=== PATIENT | female | born 1975 | race Caucasian/White ===

== ENCOUNTER 2019-02-18 12:53 | Observation (INO) ==
[2019-02-18] MEDS ORDERED: SODIUM CHLORIDE 0.9% 1000ML 1,000 ML IV ONE (13:53)
[2019-02-18] MEDS ORDERED: ONDANSETRON INJ 2 MG/ML 2 ML VIAL IV STA (13:53)
[2019-02-18 14:05] LABS: Basophils # (auto) 0.02 K/uL (0-0.2); Basophils % (auto) 0.2 %; Eosinophils # (auto) 0.11 K/uL (0-0.5); Eosinophils % (auto) 0.9 %; Hemoglobin 15.1 g/dL (12.0-16.0); Immature Granulocytes # (auto) 0.01 K/uL (0.00-0.02); Immature Granulocytes % (auto) 0.1 %; Lymphocytes # (auto) 1.28 K/uL (1.2-3.4); Lymphocytes % (auto) 10.2 %; Mean Corpuscular Hgb Conc 34.3 g/dL (32-36); Mean Corpuscular Volume 81.2 fL (80-100); Mean Platelet Volume 8.7 fL (7.4-10.4); Monocytes # (auto) 0.65 K/uL (0.11-0.59); Monocytes % (auto) 5.2 %; Neutrophils # (auto) 10.47 K/uL (1.4-6.5); Neutrophils % (auto) 83.4 %; Platelet Count 266 K/uL (130-400); RDW Coefficient of Variation 14.5 % (11.5-14.5); RDW Standard Deviation 42.8 fL (36.4-46.3); Red Blood Count 5.42 M/uL (4.2-5.4); White Blood Count 12.54 K/uL (4.8-10.8)
[2019-02-18 14:21] LABS: Albumin Level 4.3 gm/dl (3.4-5.0); Calcium 9.4 mg/dl (8.5-10.1); Creatinine Clr Calc Pharmacy 114.7 ml/min; Est GFR (African American) 93.2; Est GFR (Non-African American) 80.5; Potassium 3.7 mmol/L (3.5-5.1)
[2019-02-18 14:24] LABS: Bilirubin,Total 0.4 mg/dl (0.2-1); Globulin 4.5 gm/dl (2.5-4.0); Total Protein 8.8 gm/dl (6.4-8.2)
[2019-02-18] MEDS ORDERED: ACETAMINOPHEN 1,000 MG/100 ML VIAL IV STA (14:44)
[2019-02-18 15:19] LABS: Appearance Urine Clear (Clear); Bilirubin Urine Negative (Negative); Blood Urine Negative (Negative); Color Urine Yellow; Glucose Urine UA Negative (Negative); Ketones Urine 1+ (Negative); Leukocyte Esterase Urine Negative (Negative); Nitrite Urine Negative (Negative); Protein Urine Negative (Negative); Specific Gravity Urine 1.025 (1.000-1.030); Urobilinogen Urine Negative (Negative)
[2019-02-18] MEDS ORDERED: IOVERSOL 100ml IV PRN (15:36)
--- NOTE | 2019-02-18 15:46 | CT Scan Report ---
ABDOMEN AND PELVIS CT WITH IV CONTRAST CT DOSE: 1658.22 mGy.cm HISTORY: Acute left lower quadrant abdominal pain LLQ pain TECHNIQUE: Multiaxial CT images of the abdomen and pelvis were performed following the use of intrave nous contrast. A dose lowering technique was utilized adhering to the principles of ALARA. COMPARISON STUDY: CT abdomen and pelvis 09/14/2014. FINDINGS: Minimal linear subsegmental atelectasis/scarring of the inferior segment lingula and basal left lower lobe. Lung bases otherwise appear to be generally clear. No pneumatosis or pneumoperitoneum identifi ed. The imaged inferior cardiac chambers appear unremarkable. Spleen is mildly enlarged, 13.7 cm and otherwise appears unremarkable. The liver, gallbladder, pancre as and right adrenal gland are unremarkable. Mild thickening of the left adrenal gland. The kidneys, ureters, urinary bladder, uterus and adnexa are within normal limits. Aorta and IVC are unremarkable. There is no adenopathy. There is no small bowel obstruction. Trace free fluid noted about the dependent pelvis. Colonic diver ticulosis without acute diverticulitis. The appendix is dilated and fluid-filled with mucosal hyperem ia measuring up to 11 mm. Moderate periappendiceal inflammation. No evidence of perforation or draina ble fluid collection. Tiny fat filled periumbilical hernia. Breast parenchyma and soft tissues appear to be within normal limits. Bones appear to be intact. Spondylitic spurring with facet arthropathy n oted about the lumbar spine. Mild levoscoliosis of the lumbar spine. IMPRESSION: 1. Findings compatible with acute uncomplicated appendicitis. No evidence of perforation or drainable fluid collection. 2. Colonic diverticulosis without acute diverticulitis. 3. Mild splenomegaly. 4. Tiny fat filled periumbilical hernia. Electronically signed by: Evens Fisher M.D. 02/18/2019 3:44 PM
[2019-02-18] MEDS ORDERED: cefOXitin 1,000 MG/50 ML BAG IV STA ×2 (16:11→18:57)
--- NOTE | 2019-02-18 17:17 | Surgery Consultation ---
Date of Consultation February 18, 2019 Assessment & Plan (1) Appendicitis: Pt seen and examined with Dr. Méndez. Will plan for Laparoscopic Appendectomy, Possible Open Appendectomy. Reviewed risks of surgery with patient and patient's . Patient aware that this may not be source of her pain. She wishes to proceed with Appendectomy. Patient NPO since this AM. OR notified. SCDs. History of Present Illness Reason for Consultation: CT showing acute appendicitis History of Present Illness Ms. Tello is a 43-year-old female with past medical history significant for ovarian cyst, acid reflux, high cholesterol presents for evaluation of abdominal pain. Pt states that she developed left-sided abdominal pain yesterday evening. She reports that the pain continued to get progressively worse overnight and into this AM. She states that she did feel a bit nauseous, but did not vomit. Currently, she states her pain is now in the right lower quadrant, but that it did improve with pain medication. In ED, CT scan showed uncomplicated appendicitis, no perforation or drainable fluid collection. In addition, CT scan showed evidence of tiny fat-filled periumbilical hernia. Patient reports that her last meal was this AM around 8-9AM. Prior surgeries- . Allergies Allergy/AdvReac Type Severity Reaction Status Date / Time No Known Allergies Allergy Unknown Verified 02/18/19 15:02 Home Medications Home Medications Medication Instructions Recorded Confirmed Type bupropion HCl [Wellbutrin XL] 300 mg PO DAILY 02/18/19 02/18/19 History fluticasone propionate [Flonase 2 spray INTRANASAL DAILY 02/18/19 02/18/19 History Allergy Relief] ibuprofen 800 mg PO TID PRN 02/18/19 02/18/19 History omeprazole 20 mg PO DAILY 02/18/19 02/18/19 History simvastatin [Zocor] 20 mg PO QPM 02/18/19 02/18/19 History Patient History Medical History Bronchitis (Resolved) Left ovarian cyst (Acute) Surgical History Previous section (Resolved) Family History Other No pertinent family history Social History marital status: Feels Safe at Home: Yes Smoking Status: Never smoker Physical Exam Vital Signs (Past 24 Hours): Last Vital Signs Temp 36.6 C 02/18/19 13:06 Pulse 64 02/18/19 14:48 Resp 16 02/18/19 14:48 BP 133/89 02/18/19 14:48 Pulse Ox 99 02/18/19 14:48 Constitutional: + morbidly obese Gastrointestinal (Abdomen): Percussion/Palpation: + abdomen tender (right lower quadrant- area of tenderness marked with a mcgrath) and abdomen soft (1) Appendicitis Appendicitis type: unspecified Qualified Code(s): K37 - Unspecified a ppendicitis
--- NOTE | 2019-02-18 17:18 | History & Physical Bridge Note ---
Date of Service February 18, 2019 History & Physical Bridge Note I have examined the patient, reviewed the History & Physical and in the interval since the performance of the History & Physical I have noted the following changes of clinical significance: no changes noted SO at bedside right lower quadrant rebound deep palpation ct scan noted plan lap appy possible open r and c expalined to pt and SO
[2019-02-18] MEDS ORDERED: fentaNYL citrate 100 MCG/2 ML VIAL IV PRN (17:25)
[2019-02-18] MEDS ORDERED: ePHEDrine sulfate 50 MG/ML AMP IV PRN (17:25)
[2019-02-18] MEDS ORDERED: ONDANSETRON INJ 2 MG/ML 2 ML VIAL IV PRN (17:25)
[2019-02-18] MEDS ORDERED: ATROPINE SULFATE 0.1 MG/ML 10ML SYR IV PRN (17:25)
[2019-02-18] MEDS ORDERED: fentaNYL citrate 100 MCG/2 ML VIAL ONE ×4 (17:28→19:45)
[2019-02-18] MEDS ORDERED: PROPOFOL IV EMULSION 10 MG/ML 20 ML VIAL IV ONE ×2 (17:28→19:10)
[2019-02-18] MEDS ORDERED: LIDOCAINE HCL 2% 2 ML VIAL/AMP(20MG/ML) INFIL ONE (17:28)
[2019-02-18] MEDS ORDERED: LIDOCAINE/EPINEPHRINE 1% 20 ML VIAL ONE (17:30)
--- NOTE | 2019-02-18 17:45 | Anesthesiology Consultation ---
Date of Service February 18, 2019 Assessment & Plan (1) Encounter for pre-operative examination: Chart Review Chart Review: Acceptable Risk for Surgery Consults Requested none ASA [id number] Proposed Anesthesia Anesthesia Type: General Risk / Benefits Reviewed With: PT / POA / Parent / Guardian, Accepts Plan and Informed Consent Obtained NPO Date Last Intake of Fluids: 02/18/19 Time Last Intake of Fluids: 09:00 Date Last Intake of Solids: 02/18/19 Time Last Intake of Solids: 09:00 History Surgery Operation Date: 02/18/19 18:00 Proposed Procedures p Laparoscopic Appendectomy - Hans Méndez MD Operation Date: 02/18/19 18:15 Proposed Procedures p Laparoscopic Appendectomy Laura Méndez MD Height/Weight Height: 5 ft 7 in Weight: 130 kg Allergies Allergy/AdvReac Type Severity Reaction Status Date / Time No Known Allergies Allergy Unknown Verified 02/18/19 15:02 Medications Home Medications Medication Instructions Recorded Confirmed Last Taken bupropion HCl [Wellbutrin XL] 300 mg PO DAILY 02/18/19 02/18/19 Unknown fluticasone propionate [Flonase 2 spray INTRANASAL DAILY 02/18/19 02/18/19 Unknown Allergy Relief] ibuprofen 800 mg PO TID PRN 02/18/19 02/18/19 02/11/19 09:00 omeprazole 20 mg PO DAILY 02/18/19 02/18/19 Unknown simvastatin [Zocor] 20 mg PO QPM 02/18/19 02/18/19 Unknown Active Medications Generic Name Dose Route Start Last Admin Trade Name Freq PRN Reason Stop Dose Admin Ioversol 89 ml 02/18/19 15:36 02/18/19 15:36 Optiray 320 100ml IV 02/22/19 15:35 89 ml ONCE PRN Administration Interaction Checking Past Medical History Medical History Bronchitis (Resolved) Left ovarian cyst (Acute) Past Family History Family History Other No pertinent family history Past Surgical History Surgical History Previous section (Resolved) Past Anesthesia History No Hx of Anesthesia Complications and No Family Hx of Anesthesia Complications History of PONV No Motion Sickness Screening History of Motion Sickness: No Social History Smoking Status: Never smoker Exercise / Class Metabolic Activity II 4-5 Yardwork/Stairs/Walk up hill Physical Exam Vital Signs Last Vital Signs Temp 97.9 F 02/18/19 13:06 Pulse 63 02/18/19 17:25 Resp 20 02/18/19 17:25 BP 133/89 02/18/19 17:25 Pulse Ox 100 02/18/19 17:25 ENMT Mouth: no dentition abnormality Thyromental Distance: > or= 3.5 Finger Breadths Mallampati Class: II Neck normal visual inspection Respiratory normal respiratory effort Auscultation: lungs clear to auscultation bilaterally Cardiovascular Rate/Rhythm: regular rate and regular rhythm Testing Laboratory Results 02/18/19 13:45 02/18/19 13:45 Urine Color Yellow 02/18/19 14:52 Urine Appearance Clear (Clear) 02/18/19 14:52 Urine pH 5.0 (4.5-7.5) 02/18/19 14:52 Ur Specific [place] 1.025 (1.000-1.030) 02/18/19 14:52 Urine Protein Negative (Negative) 02/18/19 14:52 Urine Glucose (UA) Negative (Negative) 02/18/19 14:52 Urine Ketones 1+ (Negative) H 02/18/19 14:52 Urine Nitrite Negative (Negative) 02/18/19 14:52 Ur Leukocyte Esterase Negative (Negative) 02/18/19 14:52 02/18/19 16:46 POC Ur Test Pending
[2019-02-18] MEDS ORDERED: SUCCINYLCHOLINE CHLORIDE 20 MG/ML 10 ML VIAL ONE (17:47)
[2019-02-18 17:48] LABS: Pregnancy Test, Urine Negative (Negative)
--- NOTE | 2019-02-18 17:55 | Emergency Department Note ---
Entered by Sridevi Ortega acting as a scribe for Bridger Liao MD History of Present Illness General Chief complaint: Abdominal Pain Stated complaint: SEVERE PAIN IN ABDOMEN ON LEFT Time Seen by Provider: 02/18/19 13:51 Source: patient History of Present Illness Onset (ago): day(s) (2300 yesterday) Location: abdomen (LLQ) Severity: severe Pain Consistency: + other (worsening) Maximum Pain Intensity: 7 Current Pain Intensity: 5 Quality: + other (LLQ abdominal pain) Associated symptoms: + other (Positive nausea. Negative ); no fever/chills Treatments prior to arrival: other (advil and tramadol) The patient is a 43 year old female who presents to the Emergency Room with complaints of LLQ abdominal pain beginning at 2300 last night. She reports her pain was severe in onset and it worsened at 0200. She states she took advil and tramadol sparmaker but they have not relieved her pain. The patient currently rates her pain as a 5/10 in severity as she notes it has gotten better. She has a history of ovarian cysts and she is concerned she has another one. Pt has nausea but denies any diarrhea, blood in her stool, fevers, chills. Her last BM was this morning. Pt has a history of reflux and regularly takes omeprazole. Home Medications Home Medications Medication Instructions Recorded Confirmed Type bupropion HCl [Wellbutrin XL] 300 mg PO DAILY 02/18/19 02/18/19 History fluticasone propionate [Flonase 2 spray INTRANASAL DAILY 02/18/19 02/18/19 History Allergy Relief] ibuprofen 800 mg PO TID PRN 02/18/19 02/18/19 History omeprazole 20 mg PO DAILY 02/18/19 02/18/19 History simvastatin [Zocor] 20 mg PO QPM 02/18/19 02/18/19 History Allergies Allergy/AdvReac Type Severity Reaction Status Date / Time No Known Allergies Allergy Unknown Verified 02/18/19 15:02 Past Med/Surg History Medical History Bronchitis (Resolved) Left ovarian cyst (Acute) Surgical History Previous section (Resolved) Family History Other No pertinent family history Social History Preferred Language: Bengali Communication Ability: Effective [employer] Supervisor Required: No Beliefs That Will Affect Care: None marital status: Current Living Situation: Spouse Other Information That Helps Us Care for You: No Feels Safe at Home: Yes Safety Concerns: Feels Safe At This Time Smoking Status: Never smoker Hx Alcohol Use: No Hx Substance Use: No Review of Systems See HPI for pertinent positives & negatives. and A total of 10 systems reviewed and were otherwise negative Physical Exam Vital Signs Vital Signs - 24 hr 02/18/19 13:06 02/18/19 14:48 02/18/19 17:25 Temperature 36.6 C Temperature Source Oral Sepsis Recent Fever Within 48 Hours No Sepsis New/Unexplained Change in Mental Status No Sepsis Action Taken by Nursing No Action Required Pulse Rate 80 Pulse Rate [Finger] 64 63 Pulse Rate from SpO2 Sensor Pulse Rhythm [Finger] Regular Pulse Strength [Finger] Normal Respiratory Rate 20 16 20 Respiratory Effort / Characteristics Non-Labored Spontaneous Respiratory Depth Normal Respiratory Pattern Regular Blood Pressure 131/79 Blood Pressure [Right Arm] 133/89 133/89 Blood Pressure Mean 96 Blood Pressure Mean [Right Arm] 103 103 Blood Pressure Position [Right Arm] Lying Pulse Oximetry 100 99 100 Oxygen Delivery Method Room Air Room Air Room Air Oxygen Flow Rate 02/18/19 19:24 02/18/19 19:25 02/18/19 19:26 Temperature 36.8 C Temperature Source Temporal Artery Scan Sepsis Recent Fever Within 48 Hours Sepsis New/Unexplained Change in Mental Status Sepsis Action Taken by Nursing Pulse Rate 100 H 98 H Pulse Rate [Finger] 100 H Pulse Rate from SpO2 Sensor 99 H 99 H Pulse Rhythm [Finger] Regular Pulse Strength [Finger] Respiratory Rate 29 H 18 16 Respiratory Effort / Characteristics Non-Labored Spontaneous Respiratory Depth Normal Respiratory Pattern Regular Blood Pressure 129/81 Blood Pressure [Right Arm] 129/81 Blood Pressure Mean 97 Blood Pressure Mean [Right Arm] 97 Blood Pressure Position [Right Arm] Lying Pulse Oximetry 100 100 Oxygen Delivery Method Oxymask Oxygen Flow Rate 10 02/18/19 19:30 02/18/19 19:31 02/18/19 19:35 Temperature Temperature Source Sepsis Recent Fever Within 48 Hours Sepsis New/Unexplained Change in Mental Status Sepsis Action Taken by Nursing Pulse Rate 101 H 95 H 90 Pulse Rate [Finger] Pulse Rate from SpO2 Sensor 101 H 95 H 90 Pulse Rhythm [Finger] Pulse Strength [Finger] Respiratory Rate 17 15 14 Respiratory Effort / Characteristics Respiratory Depth Respiratory Pattern Blood Pressure 130/82 126/91 Blood Pressure [Right Arm] Blood Pressure Mean 98 102 Blood Pressure Mean [Right Arm] Blood Pressure Position [Right Arm] Pulse Oximetry 97 97 100 Oxygen Delivery Method Oxygen Flow Rate 02/18/19 19:36 02/18/19 19:40 02/18/19 19:41 Temperature Temperature Source Sepsis Recent Fever Within 48 Hours Sepsis New/Unexplained Change in Mental Status Sepsis Action Taken by Nursing Pulse Rate 88 87 87 Pulse Rate [Finger] Pulse Rate from SpO2 Sensor 88 86 86 Pulse Rhythm [Finger] Pulse Strength [Finger] Respiratory Rate 11 L 4 L 9 L Respiratory Effort / Characteristics Respiratory Depth Respiratory Pattern Blood Pressure 133/91 Blood Pressure [Right Arm] Blood Pressure Mean 105 Blood Pressure Mean [Right Arm] Blood Pressure Position [Right Arm] Pulse Oximetry 100 100 100 Oxygen Delivery Method Oxygen Flow Rate 02/18/19 19:45 02/18/19 19:46 02/18/19 19:50 Temperature Temperature Source Sepsis Recent Fever Within 48 Hours Sepsis New/Unexplained Change in Mental Status Sepsis Action Taken by Nursing Pulse Rate 84 85 89 Pulse Rate [Finger] Pulse Rate from SpO2 Sensor 86 87 91 H Pulse Rhythm [Finger] Pulse Strength [Finger] Respiratory Rate 12 18 15 Respiratory Effort / Characteristics Respiratory Depth Respiratory Pattern Blood Pressure 125/81 130/92 Blood Pressure [Right Arm] Blood Pressure Mean 95 104 Blood Pressure Mean [Right Arm] Blood Pressure Position [Right Arm] Pulse Oximetry 100 100 100 Oxygen Delivery Method Oxygen Flow Rate 02/18/19 19:51 02/18/19 19:55 02/18/19 19:56 Temperature Temperature Source Sepsis Recent Fever Within 48 Hours Sepsis New/Unexplained Change in Mental Status Sepsis Action Taken by Nursing Pulse Rate 79 85 88 Pulse Rate [Finger] Pulse Rate from SpO2 Sensor 85 85 86 Pulse Rhythm [Finger] Pulse Strength [Finger] Respiratory Rate 13 13 10 L Respiratory Effort / Characteristics Respiratory Depth Respiratory Pattern Blood Pressure 142/90 H Blood Pressure [Right Arm] Blood Pressure Mean 107 Blood Pressure Mean [Right Arm] Blood Pressure Position [Right Arm] Pulse Oximetry 100 98 99 Oxygen Delivery Method Oxygen Flow Rate 02/18/19 20:00 02/18/19 20:01 02/18/19 20:05 Temperature Temperature Source Sepsis Recent Fever Within 48 Hours Sepsis New/Unexplained Change in Mental Status Sepsis Action Taken by Nursing Pulse Rate 85 85 88 Pulse Rate [Finger] Pulse Rate from SpO2 Sensor 84 85 88 Pulse Rhythm [Finger] Pulse Strength [Finger] Respiratory Rate 13 16 13 Respiratory Effort / Characteristics Respiratory Depth Respiratory Pattern Blood Pressure 146/75 H Blood Pressure [Right Arm] Blood Pressure Mean 98 Blood Pressure Mean [Right Arm] Blood Pressure Position [Right Arm] Pulse Oximetry 100 100 100 Oxygen Delivery Method Oxygen Flow Rate 02/18/19 20:06 02/18/19 20:10 02/18/19 20:11 Temperature Temperature Source Sepsis Recent Fever Within 48 Hours Sepsis New/Unexplained Change in Mental Status Sepsis Action Taken by Nursing Pulse Rate 85 96 H 85 Pulse Rate [Finger] Pulse Rate from SpO2 Sensor 89 92 H 86 Pulse Rhythm [Finger] Pulse Strength [Finger] Respiratory Rate 18 17 15 Respiratory Effort / Characteristics Respiratory Depth Respiratory Pattern Blood Pressure 152/81 H 127/86 Blood Pressure [Right Arm] Blood Pressure Mean 104 99 Blood Pressure Mean [Right Arm] Blood Pressure Position [Right Arm] Pulse Oximetry 100 100 100 Oxygen Delivery Method Oxygen Flow Rate 02/18/19 20:15 02/18/19 20:16 02/18/19 20:20 Temperature Temperature Source Sepsis Recent Fever Within 48 Hours Sepsis New/Unexplained Change in Mental Status Sepsis Action Taken by Nursing Pulse Rate 90 87 85 Pulse Rate [Finger] Pulse Rate from SpO2 Sensor 87 88 84 Pulse Rhythm [Finger] Pulse Strength [Finger] Respiratory Rate 17 17 11 L Respiratory Effort / Characteristics Respiratory Depth Respiratory Pattern Blood Pressure 126/91 Blood Pressure [Right Arm] Blood Pressure Mean 102 Blood Pressure Mean [Right Arm] Blood Pressure Position [Right Arm] Pulse Oximetry 100 100 100 Oxygen Delivery Method Oxygen Flow Rate 02/18/19 20:21 02/18/19 20:22 02/18/19 20:25 Temperature Temperature Source Sepsis Recent Fever Within 48 Hours Sepsis New/Unexplained Change in Mental Status Sepsis Action Taken by Nursing Pulse Rate 77 82 71 Pulse Rate [Finger] Pulse Rate from SpO2 Sensor 79 83 76 Pulse Rhythm [Finger] Pulse Strength [Finger] Respiratory Rate 12 11 L 18 Respiratory Effort / Characteristics Respiratory Depth Respiratory Pattern Blood Pressure 145/97 H Blood Pressure [Right Arm] Blood Pressure Mean 113 Blood Pressure Mean [Right Arm] Blood Pressure Position [Right Arm] Pulse Oximetry 100 100 100 Oxygen Delivery Method Oxygen Flow Rate 02/18/19 20:26 02/18/19 20:27 02/18/19 20:30 Temperature 36.7 C Temperature Source Temporal Artery Scan Sepsis Recent Fever Within 48 Hours Sepsis New/Unexplained Change in Mental Status Sepsis Action Taken by Nursing Pulse Rate 77 73 Pulse Rate [Finger] 85 Pulse Rate from SpO2 Sensor 77 79 Pulse Rhythm [Finger] Pulse Strength [Finger] Respiratory Rate 16 16 17 Respiratory Effort / Characteristics Non-Labored Spontaneous Respiratory Depth Normal Respiratory Pattern Regular Blood Pressure 131/82 Blood Pressure [Right Arm] 143/78 H Blood Pressure Mean 98 Blood Pressure Mean [Right Arm] 99 Blood Pressure Position [Right Arm] Lying Pulse Oximetry 100 100 100 Oxygen Delivery Method Nasal Cannula Oxygen Flow Rate 2 02/18/19 20:31 02/18/19 20:35 02/18/19 20:36 Temperature Temperature Source Sepsis Recent Fever Within 48 Hours Sepsis New/Unexplained Change in Mental Status Sepsis Action Taken by Nursing Pulse Rate 70 64 75 Pulse Rate [Finger] Pulse Rate from SpO2 Sensor 74 69 84 Pulse Rhythm [Finger] Pulse Strength [Finger] Respiratory Rate 14 15 8 L Respiratory Effort / Characteristics Respiratory Depth Respiratory Pattern Blood Pressure 143/78 H 122/85 Blood Pressure [Right Arm] Blood Pressure Mean 99 97 Blood Pressure Mean [Right Arm] Blood Pressure Position [Right Arm] Pulse Oximetry 100 100 100 Oxygen Delivery Method Oxygen Flow Rate 02/18/19 20:40 02/18/19 20:41 02/18/19 20:45 Temperature Temperature Source Sepsis Recent Fever Within 48 Hours Sepsis New/Unexplained Change in Mental Status Sepsis Action Taken by Nursing Pulse Rate 67 76 65 Pulse Rate [Finger] Pulse Rate from SpO2 Sensor 69 76 64 Pulse Rhythm [Finger] Pulse Strength [Finger] Respiratory Rate 13 10 L 7 L Respiratory Effort / Characteristics Respiratory Depth Respiratory Pattern Blood Pressure 131/87 130/88 Blood Pressure [Right Arm] Blood Pressure Mean 101 102 Blood Pressure Mean [Right Arm] Blood Pressure Position [Right Arm] Pulse Oximetry 100 100 100 Oxygen Delivery Method Oxygen Flow Rate 02/18/19 20:46 02/18/19 20:50 02/18/19 21:18 Temperature 37.3 C Temperature Source Oral Sepsis Recent Fever Within 48 Hours Sepsis New/Unexplained Change in Mental Status Sepsis Action Taken by Nursing Pulse Rate 63 85 Pulse Rate [Finger] 83 Pulse Rate from SpO2 Sensor 70 84 Pulse Rhythm [Finger] Regular Pulse Strength [Finger] Normal Respiratory Rate 10 L 18 18 Respiratory Effort / Characteristics Non-Labored Spontaneous Normal for Patient Respiratory Depth Normal Respiratory Pattern Regular Blood Pressure 142/88 H Blood Pressure [Right Arm] 127/76 Blood Pressure Mean 106 Blood Pressure Mean [Right Arm] 93 Blood Pressure Position [Right Arm] Lying Pulse Oximetry 100 100 100 Oxygen Delivery Method Nasal Cannula Oxygen Flow Rate 2 02/18/19 21:55 02/18/19 21:57 Temperature 36.6 C 36.6 C Temperature Source Oral Oral Sepsis Recent Fever Within 48 Hours Sepsis New/Unexplained Change in Mental Status Sepsis Action Taken by Nursing Pulse Rate Pulse Rate [Finger] 91 H 89 Pulse Rate from SpO2 Sensor Pulse Rhythm [Finger] Regular Pulse Strength [Finger] Normal Respiratory Rate 18 18 Respiratory Effort / Characteristics Non-Labored Spontaneous Normal for Patient Respiratory Depth Normal Normal Respiratory Pattern Regular Blood Pressure Blood Pressure [Right Arm] 128/79 115/80 Blood Pressure Mean Blood Pressure Mean [Right Arm] 95 91 Blood Pressure Position [Right Arm] Lying Lying Pulse Oximetry 99 94 Oxygen Delivery Method Nasal Cannula Nasal Cannula Oxygen Flow Rate 2 2 GENERAL: Awake, alert, uncomfortable-appearing, in no distress HENT: Normocephalic, atraumatic. Oropharynx with dry mucous membranes and otherwise unremarkable. EYES: Normal conjunctiva. Sclera non-icteric. NECK: Supple. No nuchal rigidity. FROM. No JVD. RESPIRATORY: Clear to auscultation. CARDIAC: Regular rate, normal rhythm. Extremities warm and well perfused. Pulses equal. ABDOMEN: Soft, non-distended. Mild right lower quadrant tenderness to palpation. No rebound or guarding. No masses. No peritoneal signs RECTAL: Deferred. MUSCULOSKELETAL: Chest examination reveals no tenderness. The back is symmetrical on inspection without obvious abnormality. There is no CVA tenderness to palpation. No joint edema. LOWER EXTREMITIES: Calves are equal size bilaterally and non-tender. No edema. No discoloration. NEURO: Normal sensorium. No sensory or motor deficits noted. SKIN: No rash or jaundice noted. Course 1435: Past medical records reviewed. The patient was evaluated in room D2, and a complete history and physical examination were performed. 1613: I checked on the patient at this time and discussed their findings. 1614: I reviewed the patient's case with Dr. Méndez, General Surgery. He asked to page the general surgery PA. 1626: I reviewed the patient's case with Piedad Handley General Surgery [facility]. She will come see the patient. Consultations Consultation #1: I reviewed the patient's case with Dr. Méndez, General Surgery. He asked to page the general surgery PA. Time: 16:14 Consultation #2: I reviewed the patient's case with Piedad Handley General Surgery [facility]. She will come see the patient. Time: 16:26 Administered Medications Ioversol (Optiray 320 100ml) 89 ml IV ONCE PRN PRN Reason: Interaction Checking Stop: 02/22/19 15:35 Last Admin: 02/18/19 15:36 Dose: 89 ml Documented by: [id number] Ondansetron HCl (Zofran) 4 mg IV Q4H PRN PRN Reason: Nausea And Vomiting Stop: 03/20/19 17:55 Last Admin: 02/18/19 21:32 Dose: 4 mg Documented by: [id number] Discontinued Medications Fentanyl Citrate (Fentanyl Citrate) Confirm Administered Dose 100 mcg .ROUTE .STK-MED ONE Stop: 02/18/19 19:32 Last Increment: 02/18/19 19:40 Dose: 50 mcg Documented by: [id number] Increment: 02/18/19 19:35 Dose: 50 mcg Documented by: [id number] Fentanyl Citrate (Fentanyl Citrate) Confirm Administered Dose 100 mcg .ROUTE .STK-MED ONE Stop: 02/18/19 19:46 Last Increment: 02/18/19 19:50 Dose: 50 mcg Documented by: [id number] Increment: 02/18/19 19:45 Dose: 50 mcg Documented by: [id number] Hydromorphone HCl (Dilaudid) Confirm Administered Dose 1 mg .ROUTE .STK-MED ONE Stop: 02/18/19 20:09 Last Increment: 02/18/19 20:13 Dose: 0.5 mg Documented by: [id number] Increment: 02/18/19 20:08 Dose: 0.5 mg Documented by: [id number] Hydromorphone HCl (Dilaudid) Confirm Administered Dose 1 mg .ROUTE .STK-MED ONE Stop: 02/18/19 20:23 Last Increment: 02/18/19 20:28 Dose: 0.5 mg Documented by: [id number] Increment: 02/18/19 20:23 Dose: 0.5 mg Documented by: [id number] Sodium Chloride (Nss 1000ml) 1,000 mls @ 999 mls/hr IV .Q1H1M ONE Stop: 02/18/19 14:53 Last Infusion: 02/18/19 15:41 Dose: 0 mls/hr Documented by: [id number] Admin: 02/18/19 14:08 Dose: 999 mls/hr Documented by: [id number] Acetaminophen (Ofirmev) 1,000 mg in 100 mls @ 400 mls/hr IV NOW STA Stop: 02/18/19 14:58 Last Infusion: 02/18/19 15:41 Dose: 0 mls/hr Documented by: [id number] Admin: 02/18/19 14:57 Dose: 400 mls/hr Documented by: [id number] Cefoxitin Sodium (Mefoxin) 1,000 mg in 50 mls @ 100 mls/hr IV NOW STA Stop: 02/18/19 16:40 Last Infusion: 02/18/19 16:59 Dose: 0 mls/hr Documented by: [id number] Admin: 02/18/19 16:33 Dose: 100 mls/hr Documented by: [id number] Cefoxitin Sodium (Mefoxin) 1,000 mg in 50 mls @ 100 mls/hr IV ONCE STA Stop: 02/18/19 19:26 Last Infusion: 02/18/19 22:04 Dose: 0 mls/hr Documented by: [id number] Admin: 02/18/19 18:12 Dose: 100 mls/hr Documented by: [id number] Lidocaine/Epinephrine (Xylocaine/Epinephrine 1%) Confirm Administered Dose 20 ml .ROUTE .STK-MED ONE Stop: 02/18/19 17:31 Last Admin: 02/18/19 19:11 Dose: 10 ml Documented by: [id number] Ondansetron HCl (Zofran) 4 mg IV NOW STA Stop: 02/18/19 13:54 Last Admin: 02/18/19 14:08 Dose: 4 mg Documented by: [id number] Medical Decision Making Differential Diagnosis Differential diagnosis: Etiologies such as appendicitis, diverticulitis, PUD, biliary pathology, UTI, pancreatitis, obstruction, mesenteric ischemia, aortic pathology, infections, inflammatory bowel disease, renal colic, as well as others were entertained. Medical Records Attestation: I reviewed the patient's medical records. Home Medications Current Medication List: was personally reviewed by me Laboratory Data Attestation: I reviewed the patient's lab results. Result diagrams: 02/18/19 13:45 02/18/19 13:45 Lab Results 02/18/19 02/18/19 02/18/19 Range/Units 13:45 13:45 14:52 WBC 12.54 H (4.8-10.8) K/uL RBC 5.42 H (4.2-5.4) M/uL Hgb 15.1 (12.0-16.0) g/dL Hct 44.0 (37-47) % MCV 81.2 (80-100) fL MCH 27.9 (25-34) pg MCHC 34.3 (32-36) g/dL RDW Std Deviation 42.8 (36.4-46.3) fL RDW Coeff of Malini 14.5 (11.5-14.5) % Plt Count 266 (130-400) K/uL MPV 8.7 (7.4-10.4) fL Immature Gran % (Auto) 0.1 % Neut % (Auto) 83.4 % Lymph % (Auto) 10.2 % [place] % (Auto) 5.2 % Eos % (Auto) 0.9 % Baso % (Auto) 0.2 % Immature Gran # (Auto) 0.01 (0.00-0.02) K/uL Neut # (Auto) 10.47 H (1.4-6.5) K/uL Lymph # (Auto) 1.28 (1.2-3.4) K/uL [place] # (Auto) 0.65 H (0.11-0.59) K/uL Eos # (Auto) 0.11 (0-0.5) K/uL Baso # (Auto) 0.02 (0-0.2) K/uL Sodium 139 (136-145) mmol/L Potassium 3.7 (3.5-5.1) mmol/L Chloride 106 (98-107) mmol/L Carbon Dioxide 29 (21-32) mmol/L Anion Gap 4.0 (3-11) BUN 18 (7-18) mg/dl Creatinine 0.87 (0.6-1.2) mg/dl Est Cr Clr Drug Dosing 114.7 ml/min Est GFR ( Amer) 93.2 Est GFR (Non-Af Amer) 80.5 BUN/Creatinine Ratio 21.0 H (10-20) Glucose 104 H (70-99) mg/dl Calcium 9.4 (8.5-10.1) mg/dl Total Bilirubin 0.4 (0.2-1) mg/dl AST 9 L (15-37) U/L ALT 21 (12-78) U/L Alkaline Phosphatase 91 (45-117) U/L Total Protein 8.8 H (6.4-8.2) gm/dl Albumin 4.3 (3.4-5.0) gm/dl Globulin 4.5 H (2.5-4.0) gm/dl Albumin/Globulin Ratio 1.0 (0.9-2) Lipase 106 (73-393) U/L Urine Color Yellow Urine Appearance Clear (Clear) Urine pH 5.0 (4.5-7.5) Ur Specific [place] 1.025 (1.000-1.030) Urine Protein Negative (Negative) Urine Glucose (UA) Negative (Negative) Urine Ketones 1+ H (Negative) Urine Blood Negative (Negative) Urine Nitrite Negative (Negative) Urine Bilirubin Negative (Negative) Urine Urobilinogen Negative (Negative) Ur Leukocyte Esterase Negative (Negative) Urine Test (Negative) 02/18/19 Range/Units 17:46 WBC (4.8-10.8) K/uL RBC (4.2-5.4) M/uL Hgb (12.0-16.0) g/dL Hct (37-47) % MCV (80-100) fL MCH (25-34) pg MCHC (32-36) g/dL RDW Std Deviation (36.4-46.3) fL RDW Coeff of Malini (11.5-14.5) % Plt Count (130-400) K/uL MPV (7.4-10.4) fL Immature Gran % (Auto) % Neut % (Auto) % Lymph % (Auto) % [place] % (Auto) % Eos % (Auto) % Baso % (Auto) % Immature Gran # (Auto) (0.00-0.02) K/uL Neut # (Auto) (1.4-6.5) K/uL Lymph # (Auto) (1.2-3.4) K/uL [place] # (Auto) (0.11-0.59) K/uL Eos # (Auto) (0-0.5) K/uL Baso # (Auto) (0-0.2) K/uL Sodium (136-145) mmol/L Potassium (3.5-5.1) mmol/L Chloride (98-107) mmol/L Carbon Dioxide (21-32) mmol/L Anion Gap (3-11) BUN (7-18) mg/dl Creatinine (0.6-1.2) mg/dl Est Cr Clr Drug Dosing ml/min Est GFR ( Amer) Est GFR (Non-Af Amer) BUN/Creatinine Ratio (10-20) Glucose (70-99) mg/dl Calcium (8.5-10.1) mg/dl Total Bilirubin (0.2-1) mg/dl AST (15-37) U/L ALT (12-78) U/L Alkaline Phosphatase (45-117) U/L Total Protein (6.4-8.2) gm/dl Albumin (3.4-5.0) gm/dl Globulin (2.5-4.0) gm/dl Albumin/Globulin Ratio (0.9-2) Lipase (73-393) U/L Urine Color Urine Appearance (Clear) Urine pH (4.5-7.5) Ur Specific [place] (1.000-1.030) Urine Protein (Negative) Urine Glucose (UA) (Negative) Urine Ketones (Negative) Urine Blood (Negative) Urine Nitrite (Negative) Urine Bilirubin (Negative) Urine Urobilinogen (Negative) Ur Leukocyte Esterase (Negative) Urine Test Negative (Negative) Imaging Data Radiologist's Impression: Radiology results as stated below per my review and the radiologist's interpretation: ABDOMEN AND PELVIS CT WITH IV CONTRAST CT DOSE: 1658.22 mGy.cm HISTORY: Acute left lower quadrant abdominal pain LLQ pain TECHNIQUE: Multiaxial CT images of the abdomen and pelvis were performed following the use of intravenous contrast. A dose lowering technique was utilized adhering to the principles of ALARA. COMPARISON STUDY: CT abdomen and pelvis 09/14/2014. FINDINGS: Minimal linear subsegmental atelectasis/scarring of the inferior segment lingula and basal left lower lobe. Lung bases otherwise appear to be generally clear. No pneumatosis or pneumoperitoneum identified. The imaged inferior cardiac chambers appear unremarkable. Spleen is mildly enlarged, 13.7 cm and otherwise appears unremarkable. The live r, gallbladder, pancreas and right adrenal gland are unremarkable. Mild thickening of the left adrenal gland. The kidneys, ureters, urinary bladder, uterus and adnexa are within normal limits. Aorta and IVC are unremarkable. There is no adenopathy. There is no small bowel obstruction. Trace free fluid noted about the dependent pelvis. Colonic diverticulosis without acute diverticulitis. The appendix is dilated and fluid-filled with mucosal hyperemia measuring up to 11 mm. Moderate periappendiceal inflammation. No evidence of perforation or drainable fluid collection. Tiny fat filled periumbilical hernia. Breast parenchyma and soft tissues appear to be within normal limits. Bones appear to be intact. Spondylitic spurring with facet arthropathy noted about the lumbar spine. Mild levoscoliosis of the lumbar spine. IMPRESSION: 1. Findings compatible with acute uncomplicated appendicitis. No evidence of perforation or drainable fluid collection. 2. Colonic diverticulosis without acute diverticulitis. 3. Mild splenomegaly. 4. Tiny fat filled periumbilical hernia. Electronically signed by: Evens Fisher M.D. 02/18/2019 3:44 PM Blood Pressure Blood Pressure Findings: Normal blood pressure Blood Pressure Disposition: did not require urgent referral MDM Narrative The patient is a pleasant 43-year-old woman who presents emergency department with complaint of lower abdominal pain that began last night but then developed associated nausea and vomiting today per hpi. The patient reports feeling feverish last night. On arrival patient is uncomfortable but no acute distress, afebrile stable vital signs. BMI is 44.9. On exam patient has mild right lower quadrant tenderness without peritoneal signs. WBC 12.5. Chemistry without acidosis. LFTs unremarkable. UA negative for infection. CT abdomen pelvis demonstrates dilated and fluid-filled appendix with mucosal hyperemia and measuring up to 11 mm. Moderate periappendiceal inflammation. Findings are consistent for acute uncomplicated appendicitis. Patient was ordered for cefoxitin. Patient was updated. Case was discussed with Dr. Méndez and Piedad Rajput, general surgery PA-C, who will evaluate the patient for admission. Impression & Plan Appendicitis Discharge Plan Visit Data Chief Complaint: Abdominal Pain Stated Complaint: SEVERE PAIN IN ABDOMEN ON LEFT ED Provider: Bridger Liao Discharge Problem: Appendicitis Patient Disposition: Being Evaluated by Surgeon Discharge Instructions Interventions: ED Discharge Assessment Last Done: 02/18/19 17:40 Discharge Problem: Appendicitis Qualifiers: Appendicitis type: unspecified Qualified Code(s): K37 - Unspecified appendicitis The scribe's documentation has been prepared under my direction and personally reviewed by me in its entirety. I confirm that the note above accurately reflects all work, treatment, procedures, and medical decision making performed by me.
[2019-02-18] MEDS ORDERED: MoRPHine SULFATE 2 MG/ML CARP IV PRN ×2 (17:56)
[2019-02-18] MEDS ORDERED: MoRPHine SULFATE 4 MG/ML 1 ML CARP\\VIAL IV PRN (17:56)
[2019-02-18] MEDS ORDERED: OXYCODONE/ACETAMINOPHEN 5mg/325mg TAB PO PRN ×2 (17:56)
[2019-02-18] MEDS ORDERED: ONDANSETRON INJ 2 MG/ML 2 ML VIAL ONE (18:25)
[2019-02-18] MEDS ORDERED: ROCURONIUM BROMIDE 10 MG/ML 5 ML VIAL ONE (19:10)
--- NOTE | 2019-02-18 19:11 | Post Operative Brief Note ---
Immediate Post Op Note v1 Date of Surgery February 18, 2019 Pre & Post Diagnosis Operation Date: 02/18/19 18:00 <No data on this case meets the specified criteria> Operation Date: 02/18/19 18:15 Pre-Op Diagnosis: SEVERE PAIN IN ABDOMEN ON LEFT Post-Op Diagnosis: SEVERE PAIN IN ABDOMEN ON LEFT Procedure Operation Date: 02/18/19 18:00 <No data on this case meets the specified criteria> Operation Date: 02/18/19 18:15 Actual Procedures p Laparoscopic Appendectomy(Not Applicable) - Hans Méndez MD Surgeon Hans Méndez MD Document Review Specialist 0 Estimated Blood Loss 15 Findings Consistent with Post-Op Diagnosis
--- NOTE | 2019-02-18 19:25 | Operative Report ---
Post Operative Report Pre & Post Diagnosis Operation Date: 02/18/19 18:00 <No data on this case meets the specified criteria> Operation Date: 02/18/19 18:15 Pre-Op Diagnosis: SEVERE PAIN IN ABDOMEN ON LEFT Post-Op Diagnosis: SEVERE PAIN IN ABDOMEN ON LEFT Procedure Operation Date: 02/18/19 18:00 <No data on this case meets the specified criteria> Operation Date: 02/18/19 18:15 Actual Procedures p Laparoscopic Appendectomy(Not Applicable) - Hans Méndez MD The patient was brought into the operating theater under supine position had voided prior to going to the operating room general endotracheal anesthesia the abdomen was prepped widely with Betadine solution properly draped systemic antibiotics had been given an incision was made supraumbilically approximately three quarters of an inch long deepened through subcutaneous tissue dissecting out the subcuticular tissue until we were able to get to the abdominal wall which was difficult the patient has significant amount of subcutaneous tissue we enlarged the incision for finally we were able to see the fascia elevated with [place] clamps small opening in the fascia was made 0 Vicryl suture was used to stay sutures elevate the fascia and subcutaneous tissue hemostat was introduced followed by a trocar 5 mm without the sharp bed stay sutures were used to control the pneumoperitoneum camera was inserted we were able to visualize the abdomen had a room to work although the patient did have some adhesions and a lower midline incision that she has had for were able to get a 5 mm trocar in the right upper quadrant with preemptive local analgesic and at this point I was able to place the camera in that area and then we converted the um bilical port from a 5 mm to 12 mm again using the stay sutures to control the pneumoperitoneum 5 mm that we had taken out from umbilical area under direct visualization we would put her skilled nursing between the symphysis pubis and umbilical tissue after we took out some adhesions from the anterior abdominal wall which were minimal omental adhesion the camera was placed in the lower port we were unable to identify the cecum elevated out we could see the tip of the appendix at the base of the appendix coming off towards this able to create a window in that area and then used the 10 ROB was free able to the resect the appendix from the cecum the mesoappendix was white quite thickened had a significant amount of fibrous tissue to the retroperitoneal which we took on by sharp dissection there was some oozing and that plane that we controlled it was usually mostly some trocar 25 coag and also some Surgicel the base of the mesoappendix I took down using the 10 mm clips coming through the umbilical area and multiple bites as this was quite thick and hemostasis was excellent the appendix was removed in total is short but it was dilated nonruptured no fibrous exudate was placed in an Endopouch and taken out through the umbilical area we then checked hemostasis in that area patient placed in reverse Trendelenburg suctioned out and hemostasis appear satisfactory we checked individual trochars we were taken to moderate last the umbilical trocar fascial stitch the umbilical tissue was used using the 0 Vicryl multiple layers interrupted and #0 PDS interrupted subcu was approximated with 1 PDS over 1 PDS interrupted suture and kristen were used for dressing dressing procedure was tolerated well by the patient minimal blood loss 15 cc Surgeon Hans Méndez MD Plate Filler 0 Estimated Blood Loss 15 Findings Consistent with Post-Op Diagnosis Specimens appendix Description of Procedure merda I attest to the content of the Intraoperative Record and any orders documented therein. Any exceptions are noted below.
--- NOTE | 2019-02-18 19:30 | Anesthesiology Progress Note ---
Date of Service February 18, 2019 Anesthesia Post Procedure Vital Signs Vital Signs: Temp Pulse Pulse Resp BP BP Pulse Ox 02/18/19 17:25 63 20 133/89 100 02/18/19 14:48 64 16 133/89 99 02/18/19 13:06 97.9 F 80 20 131/79 100 Pain Intensity Left Lower Abdomen: Pain Intensity: 2 Notes Mental Status: alert / awake / arousable and participated in evaluation Patient Amnestic to Procedure: Yes Nausea / Vomiting: adequately controlled Pain: adequately controlled Airway Patency, RR, SpO2: stable & adequate BP & HR: stable & adequate Hydration State: stable & adequate Anesthetic Complications: no major complications apparent and Pt Satisfied with anesthetic care
[2019-02-18] MEDS ORDERED: HYDROmorphone INJ 2 MG/ML SYR/VIAL IV PRN (20:05)
[2019-02-18] MEDS ORDERED: HYDROmorphone INJ 1 MG/ML SYRINGE ONE ×2 (20:08→20:22)
[2019-02-18] MEDS: ONDANSETRON INJ 2 MG/ML 2 ML VIAL IV PRN (21:32)
[2019-02-18] MEDS: LACTATED RINGER'S 1,000 ML IV SCH (22:35)
[2019-02-19] MEDS: LACTATED RINGER'S 1,000 ML IV SCH ×2 (02:24→06:36)
[2019-02-19] MEDS: ONDANSETRON INJ 2 MG/ML 2 ML VIAL IV PRN (08:41)
[2019-02-19] MEDS ORDERED: BuPROPion XL 300 MG TABCR PO SCH (09:00)
[2019-02-19] MEDS ORDERED: PANTOprazole 40 MG TAB PO SCH (09:00)
--- NOTE | 2019-02-19 13:10 | Surgery Progress Note ---
Date of Service February 19, 2019 Assessment & Plan (1) Appendicitis: POD #1- s/p Laparoscopic Appendectomy Patient seen and examined with Dr. Méndez. Tolerating diet. Pain controlled. Incisions clean, dry, intact. Patient ok for discharge to home. Return precautions reviewed. Patient to follow-up with Dr. Méndez in the General Surgery clinic in 1 week. Subjective Patient doing well- tenderness at incision sites as expected. Tolerating diet. Denies nausea or vomiting. Physical Exam Vital Signs (Past 24 Hours): Last Vital Signs Temp 37.6 C H 02/19/19 12:42 Pulse 61 02/19/19 12:42 Resp 17 02/19/19 12:42 BP 114/74 02/19/19 12:42 Pulse Ox 94 02/19/19 12:42 Gastrointestinal (Abdomen): Inspection/Auscultation: + abdominal surgical incision (clean, dry, intact ) Percussion/Palpation: abdomen soft (1) Appendicitis Appendicitis type: unspecified Qualified Code(s): K37 - Unspecified appendicitis
--- NOTE | 2019-02-20 09:27 | Discharge Summary ---
Date of Service February 20, 2019 Admission HPI Per Admitting Provider Ms. Tello is a 43-year-old female with past medical history significant for ovarian cyst, acid reflux, high cholesterol presents for evaluation of abdominal pain. Pt states that she developed left-sided abdominal pain the evening prior to presenting to [facility] ED. She reports that the pain continued to get progressively worse overnight and into the morning. She states that she did feel a bit nauseous, but did not vomit. While in the ED, she states her pain is now in the right lower quadrant, but that it did improve with pain medication. In ED, CT scan showed uncomplicated appendicitis, no perforation or drainable fluid collection. In addition, CT scan showed evidence of tiny fat-filled periumbilical hernia. Principal Diagnosis Acute Appendicitis Discharge Exam Constitutional + morbidly obese Gastrointestinal (Abdomen) Inspection/Auscultation: + abdominal surgical incision (clean, dry, intact ) Percussion/Palpation: + abdomen tender (right lower quadrant- area of tenderness marked with a port graham) and abdomen soft Discharge Data Allergies Allergy/AdvReac Type Severity Reaction Status Date / Time No Known Allergies Allergy Unknown Verified 02/18/19 15:02 Consultations 02/18/19 16:50 ED Decision to Admit Stat Procedures Performed Operation Date: 02/18/19 18:00 <No data on this case meets the specified criteria> Operation Date: 02/18/19 18:15 Actual Procedures p Laparoscopic Appendectomy(Not Applicable) - Hans Méndez MD Ordered Studies 02/18/19 14:44 CT abd pelvis IV con only Stat Hospital Course (1) Appendicitis: Pre & Post Diagnosis Operation Date: 02/18/19 Pre-Op Diagnosis: SEVERE PAIN IN ABDOMEN ON LEFT Post-Op Diagnosis: SEVERE PAIN IN ABDOMEN ON LEFT Actual Procedures Laparoscopic Appendectomy - Hans Méndez MD Post-operatively, patient was admitted to Med/Surg floor for observation, pain control. POD #1- s/p Laparoscopic Appendectomy Patient seen and examined with Dr. Méndez. Tolerating diet. Pain controlled. Incisions clean, dry, intact. Patient ok for discharge to home. Return precautions reviewed. Patient to follow-up with Dr. Méndez in the General Surgery clinic in 1 week. Total Time Total Time Spent Total Time Spent (In Minutes): 5 Discharge Plan Discharge Items Patient Disposition: Home - Self-Care Reason For Visit: S/P APPENDECTOMY Discharge Diagnosis: Acute Appendicitis Discharge Goals: Decrease discomfort and Improve function Activity: As commented below Lifting: No more than 10 pounds Lifting Comment: Do not lift more than 10 lbs for the next 2 weeks. Bathing Comment: You may shower, but do not soak or scrub your incisions. Driving/Machine Use: Resume 3 days after discharge Non-emergency contact: Surgeon Call non-emergency contact if: you have any medication questions, your pain is not controlled, your temperature is above 101.5, your wound has increased redness and your wound has increased drainage Follow-up/Referrals: Hans Méndez MD [Surgeon] - (Please call the General Surgery clinic at [phone] to schedule a follow-up appointment with Dr. Méndez. Please follow-up in 1-2 weeks. ) Laurel Castillo MD [Primary Care Provider] - Diet: Regular Addtl Provider Instructions: You have steri-strips over your incisions. Do not pull or peel these off, they will fall off by themselves. You may shower, but do not soak or scrub your incisions. Please follow-up with Dr. Méndez in the General Surgery clinic in 1-2 weeks. Please call the clinic at [phone] to schedule your follow-up appointment. Prescriptions: New oxycodone-acetaminophen [Percocet] 5-325 mg tablet 1 tab PO Q6H PRN (Reason: pain) 3 Days Qty: 14 RF: 0 Continued simvastatin [Zocor] 20 mg tablet 20 mg PO QPM RF: 0 omeprazole 20 mg capsule,delayed release(DR/EC) 20 mg PO DAILY RF: 0 fluticasone propionate [Flonase Allergy Relief] 50 mcg/actuation spray,suspension 2 spray intranasal DAILY RF: 0 bupropion HCl [Wellbutrin XL] 300 mg tablet extended release 24 hr 300 mg PO DAILY RF: 0 ibuprofen 200 mg Tablet 800 mg PO TID PRN (Reason: Pain) RF: 0 Stand-Alone Forms: Call Back Authorization, [facility], Opioid Pain [facility], Work/School Release (Inpt) Discharge Orders: Discharge Order (Routine); Ordered 02/19/19 Ordered By: Piedad L. Sowcik Admission Data Admit Date/Time: 02/18/19 17:56 Attending Provider: Hans Méndez Admit Provider: Hans Méndez Primary Care Provider: Laurel Castillo Other Providers: Hans Méndez Service: Surgical Services Other Interventions: Discharge Summary Assessment (RN) Last Done: 02/19/19 12:42 Pending Studies at Discharge: Yes Studies:: Pathology report. DC Date/Time DO NOT enter until pt leaves facility: 02/19/19 14:10
== END 2019-02-19 14:10 | disposition home or self-care (01) ==
LOC: ED 12:53 → 3W 17:40 → ASU 17:40